=== PATIENT | female | born 1975 | race Caucasian/White ===

== ENCOUNTER 2021-08-29 12:12 | Outpatient (CLI) | payer BC, SELFPAY | END 2021-08-29 12:13 | disposition home or self-care (01) | LOC: LABBT 12:12 | PROVIDERS: ATTEND Plastic Surgery | DX: Z20.822 Contact with and (suspected) exposure to COVID-19 (principal) | CPT/HCPCS: 87811 ==

== ENCOUNTER 2021-09-01 10:01 | Day surgery (SDC) | payer OTHER ==
[2021-08-31 13:09] VITALS: BMI 30.2
[2021-09-01] MEDS ORDERED: Heparin 5,000 UNITS/ML VIAL ONE (10:39)
[2021-09-01] MEDS ORDERED: Lidocaine 1% (PF) 30 ML VIAL ONE (10:51)
[2021-09-01] MEDS ORDERED: Lidocaine 1% w/Epinephrine 1:100K 20 ML VIAL ONE (10:51)
[2021-09-01] MEDS ORDERED: Bupivacaine 0.25% HCL 30 ML VIAL ONE (10:51)
[2021-09-01] MEDS ORDERED: EPINEPHrine 1 MG/ML AMP ONE ×2 (10:51→11:55)
[2021-09-01] MEDS ORDERED: fentaNYL Citrate/PF 100 MCG/2 ML SYRINGE ONE ×2 (11:14→14:33)
[2021-09-01] MEDS ORDERED: SUGAMMADEX SODIUM 200 MG/2 ML VIAL ONE (11:48)
[2021-09-01] MEDS ORDERED: Midazolam HCl 2 mg/2 ml Vial ONE (11:54)
[2021-09-01] MEDS ORDERED: Gentamicin 80 MG/2 ML VIAL IM SCH (12:00)
[2021-09-01] MEDS ORDERED: Dexmedetomidine 200 MCG/2 ML VIAL ONE (12:16)
[2021-09-01] MEDS ORDERED: Famotidine/PF 20 mg/2ml Vial ONE (12:16)
[2021-09-01] MEDS ORDERED: CEFAZOLIN 2 GM VIAL ONE (12:23)
[2021-09-01] MEDS ORDERED: Sodium Chloride 0.9% 100 ML ONE (12:23)
[2021-09-01] MEDS ORDERED: Ondansetron PF 4 MG/2 ML Vial ONE (12:40)
[2021-09-01] MEDS ORDERED: Dexamethasone 20 MG/5 ML VIAL ONE (12:40)
[2021-09-01] MEDS ORDERED: Ketorolac Tromethamine 30 MG/ML VIAL ONE (12:40)
[2021-09-01] MEDS ORDERED: Rocuronium Bromide 10 MG/ML (10ML VIAL) ONE (12:40)
[2021-09-01] MEDS ORDERED: PROPOFOL 200 MG/20 ML VIAL ONE (12:40)
[2021-09-01] MEDS ORDERED: Lidocaine 1% PF 5 ML VIAL ONE (12:40)
[2021-09-01] MEDS ORDERED: Tranexamic Acid 1,000 MG/10 ML VIAL ONE (13:14)
[2021-09-01] MEDS ORDERED: HYDROmorphone 2 MG/ML VIAL ONE (15:37)
[2021-09-01] MEDS ORDERED: Fentanyl 100 MCG/2 ML VIAL ONE (16:43)
[2021-09-01] MEDS ORDERED: HYDROcodone/Acetaminophen 5/325 mg Tablet ONE (17:27)
== END 2021-09-01 18:23 | disposition home or self-care (01) ==
LOC: SDC 10:01
PROVIDERS: ATTEND Plastic Surgery
PROC: 0JB80ZZ Excision of Abdomen Subcutaneous Tissue and Fascia, Open Approach (ICD-10-PCS; principal; 2021-09-01)
DX: L98.7 Excessive and redundant skin and subcutaneous tissue (principal); E03.9 Hypothyroidism, unspecified; M19.90 Unspecified osteoarthritis, unspecified site; Z87.891 Personal history of nicotine dependence; Z79.890 Hormone replacement therapy; Z79.899 Other long term (current) drug therapy; Z88.1 Allergy status to other antibiotic agents; Z88.2 Allergy status to sulfonamides
CPT/HCPCS: J0171; J0690; J1100; J1170; J1580; J1644; J1885; J2001; J2250; J2405; J2704; J3010; J3370; J3490; S0020; S0028